=== PATIENT | female | born 1960 | race Caucasian/White ===

== ENCOUNTER 2024-11-23 11:56 | Outpatient (CLI) | payer OTHER ==
[~2024-11-23 11:56] MED LIST: LISINOPRIL20 MG; SYNTHROID50 MCG
== END 2024-11-23 12:03 | disposition home or self-care (01) ==
LOC: SONOGRAMA 11:56
PROVIDERS: ATTEND Pathology Anatomic Pathology & Clinical Pathology
DX: D34 Benign neoplasm of thyroid gland (principal); E04.2 Nontoxic multinodular goiter